=== PATIENT | male | born 1995 | race African-American/Black ===

== ENCOUNTER 2023-06-06 21:58 | Emergency (ER) | payer BC ==
[2023-06-06 22:05] VITALS: BP 104/71; PULSE 64; RESP 18; TEMP 98; BMI 25.7
== END 2023-06-06 23:17 | disposition home or self-care (01) ==
LOC: JER 21:58
DX: R42 Dizziness and giddiness (principal); J45.901 Unspecified asthma with (acute) exacerbation
CPT/HCPCS: 82962; 93005; 93010; 99284-25